=== PATIENT | male | born 1955 | race Caucasian/White ===

== ENCOUNTER 2018-05-26 07:28 | Emergency (ER) | payer MEDICAID ==
[~2018-05-26] VITALS: Ht 162.6 cm; Wt 63.5 kg
[2018-05-26 07:29] VITALS: BP 147/86
--- NOTE | 2018-05-26 07:41 | NUR ---
PT AMBUALTES W/ STEADY GAIT TO BED 11 AT THIS TIME ACCOMPANIED BY . REPORT GIVEN TO PRAVEEN SANTIAGO.
--- NOTE | 2018-05-26 07:45 | NUR ---
62 Y.O MALE CAME IN TO THE ED WITH HIS FOR LEFT LEG BONE AND NERVE PAIN FOPR 3 DAYS. DENIES ANY TRAUMA, BRUISING, CUTS, FALLS. PT STATES THE PAIN FEELS CRUSHING, RADIATES FROM HIS THIGH DOWN THE FRONT OF HIS LEG, DOWN THE DEL CID AND TO THE ANKLE. THE PAIN IS WORSE WHEN HE IS LAYING DOWN AND FINDS SLIGHT RELIEF WHEN HE STANDS UP. WEIGHT FROM WALKING DOES NOT CHANGE THE PAIN AND OCCASSIONALLY WALKS WITH A LIMP. PAIN IS 10/10 AND HE FEELS THE PAIN ALL THE TIME. PEDAL PULSES +3 BILATERALLY. FULL RANGE OF MOTION IN THE ANKLE, THE KNEE FEELS SLIGHTLY STIFF TO BEND. SKIN IS INTACT ON LEFT LEG, WARM AND DRY TO THE [facility]; NO CHANGE IN SKIN TEMPERATUE FROM LEFT TO RIGHT LEG. PT STATES HE HAS NOT HAD THIS PAIN BEFORE. LUNGS ARE CLEAR BILATERALLY. S1S2 HEARD. HX: DIABETIC, HTN. TAKES MEDICATION FOR BOTH. Addendum: 05/26/18 at 0800 by [email or web address] PT STATES HE HAS BEEN TAKING IBURPROFEN BUT IT DOES NOT WORK TO DIMINISH THE PAIN
[2018-05-26] MEDS ORDERED: traMADol 50 MG TAB PO ONE (07:55)
[2018-05-26] MEDS ORDERED: KETOROLAC 60 MG/2 ML VIAL IM ONE (07:55)
--- NOTE | 2018-05-26 08:11 | NUR ---
DOCUMENT CONTROL ASSOCIATE TAKING PT TO RADIOLOGY.
--- NOTE | 2018-05-26 08:23 | NUR ---
PT BACK FROM X.RAY
--- NOTE | 2018-05-26 10:27 | NUR ---
EDUCATED PT ON MEDICATION AND S/SX. PT ASKED TO SPEAK WITH THE DR AGAIN AND SAID THEY WOULD WAIT UNTIL THE DR IS AVAILABLE. THEY REQUESTED MEDICATION FOR HIS HTN. NOTIFIED DR. WEI.
--- NOTE | 2018-05-26 10:32 | NUR ---
PT ASKED FOR COPY OF XRAY INFORMATION. PRINTED OUT THE REPORT AND WENT OVER RESULTS WITH PT. EXPLAINED THAT IF THEY GO TO ANOTHER DR WHO WOULD LIKE TO SEE THE XRAYS, WE CAN HAVE THEM EMAILED TO THE CLINIC.
[2018-05-26 10:40] VITALS: BP 143/81
--- NOTE | 2018-05-26 10:40 | NUR ---
Patient discharged with v/s stable. Written and verbal after care instructions given and explained. Patient alert, oriented and verbalized understanding of instructions. Ambulatory with steady gait. All questions addressed prior to discharge. ID band removed. Patient advised to follow up with PMD. Rx of voltaren xr given. Patient educated on indication of medication including possible reaction and side effects. Opportunity to ask questions provided and answered.
== END 2018-05-26 10:40 | disposition home or self-care (01) ==
LOC: MED 07:28
DX: M25.552 Pain in left hip (principal); M25.562 Pain in left knee; E11.40 Type 2 diabetes mellitus with diabetic neuropathy, unspecified; I10 Essential (primary) hypertension; Z79.84 Long term (current) use of oral hypoglycemic drugs
CPT/HCPCS: 73502; 82948; 96372; 99284; J1885